=== PATIENT | female | born 1980 | race Asian ===

== ENCOUNTER 2018-10-29 13:30 | Emergency (ER) | payer BC ==
[~2018-10-29] VITALS: Ht 160 cm; Wt 54.0 kg
[2018-10-29 13:51] VITALS: Ht 160 cm; Wt 54.0 kg
[2018-10-29 15:28] LABS: BASOPHIL % 0.7 % (0-2); PLATELET COUNT 279 x10^3mcL (130-400); RED CELL DISTRIBUTION WIDTH 12.6 % (11.5-14.5)
[2018-10-29 15:42] LABS: CARBON DIOXIDE 23.5 mmol/L (21-32); CHLORIDE SERUM 102 mmol/L (98-107); CREATININE SERUM 0.8 mg/dL (0.6-1.0); GFR1 > 60 mL/min; GLUCOSE SERUM 85 mg/dL (74-106); POTASSIUM SERUM 3.5 mmol/L (3.5-5.1); SODIUM SERUM 137 mmol/L (136-145)
[2018-10-29 15:46] LABS: ALBUMIN 4.3 g/dL (3.4-5.0); ALKALINE PHOSPHATASE 34 U/L (46-116); ALT/SGPT 24 U/L (14-59); AST/SGOT 17 U/L (15-37); BILIRUBIN TOTAL 1.8 mg/dL (0.20-1.00); LIPASE 223 IU/L (73-393); TOTAL PROTEIN, SERUM 7.8 g/dL (6.4-8.2)
[2018-10-29 16:15] VITALS: BP 116/79
== END 2018-10-29 16:24 | disposition home or self-care (01) ==
LOC: ED 13:30
PROVIDERS: Emergency Medicine
DX: K29.00 Acute gastritis without bleeding (principal); Z86.19 Personal history of other infectious and parasitic diseases
CPT/HCPCS: 36415